=== PATIENT | female | born 1950 | race Caucasian/White ===

== ENCOUNTER 2021-07-25 09:15 | Emergency (ER) | payer OTHER ==
--- OUTSIDE RECORDS SUMMARY | 2021-07-25 09:17 | XMS REPORT | Continuity of Care Document ---
:1950 Author Organization [facility] t Address [address] [place] [address] Dr. Palomino [address] [place] [id number] Care Team Providers Name Role Phone CRISTEL Attending Clinician Unavailable Problems This patient has no known problems. Allergies, Adverse Reactions, Alerts This patient has no known allergies or adverse reactions. Medications This patient has no known medications. Procedures This patient has no known procedures. Encounters Start End Encounter Admission Attending Care Care Encounter Source Date/Time Date/Time Type Type Clinicians Facility Department ID 2020-08-12 2020-08-12 Outpatient CRISTEL [facility] [id number] 00:00:00 00:00:00 JANA [id number] [facility] Results This patient has no known results.
[2021-07-25] MEDS ORDERED: NA CHLORIDE 0.9% 1,000 ML ONE (09:52)
[2021-07-25 09:58] LABS: Absolute Lymphocytes (CBC) 1.5 K/uL (0.7-4.9); Hematocrit 40.5 % (36.0-45.0); Lymphocytes % 24.5 % (15.3-44.8); MPV 6.6 fL (7.6-11.3)
[2021-07-25 10:18] LABS: Ferritin 160.3 ng/mL (8-388); Potassium 4.2 mmol/L (3.5-5.1)
--- NOTE | 2021-07-25 10:32 | RAD REPORT ---
EXAM DESCRIPTION: RAD - Chest Single View - 07/25/2021 10:11 am CLINICAL HISTORY: COVID+, sob;Cough COMPARISON: Chest Pa And Lat (2 Views) dated 07/21/2017; Chest Pa And Lat (2 Views) dated 03/24/2016; C hest Pa And Lat (2 Views) dated 02/23/2016 FINDINGS: Lines: None. Lungs: No evidence of edema or pneumonia. Apical scarring. Pleural: No significant pleural effusions or pneumothorax. Cardiac: The heart size is within normal limits. Bones: No acute fractures. Other: IMPRESSION: No acute cardiopulmonary disease.
--- NOTE | 2021-07-25 12:23 | ER ---
Nurse's Notes [facility] Name: Yulissa Arambula Age: 70 yrs Sex: Female : 1950 Arrival Date: 07/25/2021 Time: 09:20 Bed 5 Private MD: Lauro Mensah C Diagnosis: SARS-associated coronavirus as the cause of diseases classified elsewhere;Muscle weakness (generalized) Presentation: 07/25 09:25 Chief complaint: Patient states: Tested positive for covid last week 07/18/2001; states vg1 'last night I began to not feel well, states h/a and 'feeling weak'. Denies difficulty breathing, pain, or N/V. 09:25 Coronavirus screen: Vaccine status: Patient reports receiving the 2nd dose of the covid vg1 vaccine. Client denies travel out of the [place] in the last 14 days. Client reports previous positive COVID test result. Date of collection: July 18, 2021. Ebola Screen: Patient negative for fever greater than or equal to 101.5 degrees Fahrenheit, and additional compatible Ebola Virus Disease symptoms. Initial Sepsis Screen: Does the patient meet any 2 criteria? No. Patient's initial sepsis screen is negative. Does the patient have a suspected source of infection? No. Patient's initial sepsis screen is negative. Risk Assessment: Do you want to hurt yourself or someone else? Patient reports no desire to harm self or others. Onset of symptoms was July 24, 2021. 09:25 Method Of Arrival: Ambulatory vg1 09:25 Acuity: JENNIFER 3 vg1 Triage Assessment: 09:25 General: Appears in no apparent distress. uncomfortable, Behavior is calm, cooperative. vg1 Pain: Denies pain. EENT: No signs and/or symptoms were reported regarding the EENT system. Neuro: Level of Consciousness is awake, alert, obeys commands, Oriented to person, place, time, situation. Cardiovascular: Patient's skin is warm and dry. Respiratory: Airway is patent Respiratory effort is even, unlabored, Breath sounds are clear bilaterally. GI: Patient currently denies nausea, vomiting. : No signs and/or symptoms were reported regarding the genitourinary system. Derm: Skin is intact, is healthy with good turgor. Musculoskeletal: Circulation, motion, and sensation intact. Historical: - Allergies: 09:25 Medication with 'Mycin'; vg1 - Home Meds: 09:25 Simvastatin Oral [Active]; Ativan Oral [Active]; vg1 - PMHx: 09:25 Anxiety; Hypertensive disorder; Hypercholesterolemia; vg1 - Immunization history:: Client reports receiving the 2nd dose of the Covid vaccine. - Social history:: Smoking status: Patient denies any tobacco usage or history of. - Family history:: not pertinent. - Hospitalizations: : No recent hospitalization is reported. Screenin:07 Abuse screen: Denies threats or abuse. Nutritional screening: No deficits noted. vg1 Tuberculosis screening: No symptoms or risk factors identified. Fall Risk No fall in past 12 months (0 pts). No secondary diagnosis (0 pts). IV access (20 points). Ambulatory Aid- None/Bed Rest/Nurse Assist (0 pts). Gait- Normal/Bed Rest/Wheelchair (0 pts) Mental Status- Oriented to own ability (0 pts). Total Rodriguez Fall Scale indicates No Risk (0-24 pts). Assessment: 09:25 Reassessment: SEE TRIAGE. vg1 10:30 Reassessment: Patient appears in no apparent distress at this time. No changes from vg1 previously documented assessment. Patient and/or family updated on plan of care and expected duration. Pain level reassessed. Patient is alert, oriented x 3, equal unlabored respirations, skin warm/dry/pink. 11:55 Reassessment: Patient appears in no apparent distress at this time. No changes from vg1 previously documented assessment. Patient is alert, oriented x 3, equal unlabored respirations, skin warm/dry/pink. Vital Signs: 09:20 BP 157 / 90; Pulse 64; Resp 18; Pulse Ox 100% ; Pain 0/10; jh6 09:25 BP 157 / 95; Pulse 82; Resp 17; Temp 98.5(O); Pulse Ox 98% on R/A; Weight 49.9 kg; vg1 Height 5 ft. 1 in. (154.94 cm); Pain 0/10; 11:08 BP 158 / 72; Pulse 64; Resp 18; Pulse Ox 100% on R/A; Pain 0/10; jh6 11:54 BP 140 / 81; Pulse 67; Resp 15; Pulse Ox 100% on R/A; vg1 13:07 BP 136 / 81; Pulse 72; Resp 18; Temp 98.2; Pulse Ox 100% ; Pain 0/10; jh6 09:25 Body Mass Index 20.78 (49.90 kg, 154.94 cm) vg1 ED Course: 09:20 Patient arrived in ED. as 09: Lauro Mensah MD is Private Physician. as 09: Ousmane Marquez MD is Attending Physician. rn 09:22 Marsha Cabrera RN is Primary Nurse. vg1 09:25 Arm band placed on. EKG completed in triage. Results shown to MD. vg1 09:50 Initial lab(s) drawn, by me, sent to lab. Inserted saline lock: 22 gauge in left vg1 antecubital area, using aseptic technique. Blood collected. 10:04 Triage completed. vg1 10:07 Patient has correct armband on for positive identification. Placed in gown. Bed in low vg1 position. Call light in reach. Side rails up X 1. Adult w/ patient. patent searcher on. Pulse ox on. NIBP on. 10:07 No provider procedures requiring assistance completed. vg1 10:11 XRAY Chest (1 view) In Process Unspecified. EDMS 12:45 Notified ED physician of a critical lab result(s). COVID +. jl7 13:08 IV discontinued, intact, bleeding controlled, No redness/swelling at site. Pressure jh6 dressing applied. Administered Medications: 09:56 Drug: NS 0.9% 1000 ml Route: IV; Rate: 1000 ml; Site: left antecubital; 6 11:00 Follow up: IV Status: Completed infusion; IV Intake: 1000ml 1 Intake: 11:00 IV: 1000ml; Total: 1000ml. vg1 Outcome: 12:22 Discharge ordered by . rn 13:07 Discharged to home ambulatory. jh6 13:07 Condition: good 13:07 Discharge instructions given to patient, family, Instructed on discharge instructions, follow up and referral plans. Demonstrated understanding of instructions, follow-up care, Prescriptions given X 13:08 Patient left the ED. jh6 Signatures: Dispatcher [employer] EDMS Debra Jacobsen Roman, MD MD rn Leal, Jahala, RN RN jl7 Marsha Cabrera RN RN 1 Shani Villanueva RN RN 6
--- NOTE | 2021-07-25 12:23 | EDPHYS ---
Physician Documentation [facility] Name: Yulissa Arambula Age: 70 yrs Sex: Female : 1950 Arrival Date: 07/25/2021 Time: 09:20 Bed 5 Private MD: Lauro Mensah C ED Physician Ousmane Marquez HPI: 07/25 09:38 This 70 yrs old Female presents to ER via Unassigned with complaints of Weakness, rn Headache, Congestion - covid+. 09:38 Patient reports has been recently had COVID, she initially tested negative but then rn +1-week ago. Reports mild cough/headache/generalized weakness. Reports the weakness is the most severe symptom. Reports mild diarrhea. Reports mild shortness of breath. No chronic respiratory problems. No chest pain. No hemoptysis.. Onset: The symptoms/episode began/occurred 1 week(s) ago. Severity of symptoms: At their worst the symptoms were mild in the emergency department the symptoms are unchanged. The patient has not experienced similar symptoms in the past. The patient has been recently seen by a physician:. Historical: - Allergies: 09:25 Medication with 'Mycin'; vg1 - Home Meds: 09:25 Simvastatin Oral [Active]; Ativan Oral [Active]; vg1 - PMHx: 09:25 Anxiety; Hypertensive disorder; Hypercholesterolemia; vg1 - Immunization history:: Client reports receiving the 2nd dose of the Covid vaccine. - Social history:: Smoking status: Patient denies any tobacco usage or history of. - Family history:: not pertinent. - Hospitalizations: : No recent hospitalization is reported. ROS: 09:38 Constitutional: Negative for fever, and weight loss, Eyes: Negative for injury, pain, rn redness, and discharge, Neck: Negative for injury, pain, and swelling, Cardiovascular: Negative for chest pain, palpitations, and edema, Respiratory: Negative for shortness of breath, cough, wheezing, and pleuritic chest pain, Abdomen/GI: Negative for abdominal pain, nausea, vomiting, and constipation, Back: Negative for injury and pain, : Negative for injury, bleeding, discharge, and swelling, MS/Extremity: Negative for injury and deformity, Skin: Negative for injury, rash, and discoloration, Neuro: Negative for numbness, tingling, and seizure. Exam: 09:38 Constitutional: This is a well developed, well nourished patient who is awake, alert, rn and in no acute distress. Ambulatory to room without assistance or difficulty Head/Face: Normocephalic, atraumatic. Eyes: Periorbital areas with no swelling, redness, or edema. ENT: Nares patent. No nasal discharge, no septal abnormalities noted. Tympanic membranes are normal and external auditory canals are clear. Oropharynx with no redness, swelling, or masses, exudates, or evidence of obstruction, uvula midline. Mucous membranes moist. Cardiovascular: Regular rate and rhythm. No pulse deficits. Respiratory: Speaking full sentences, unlabored. No increased work of breathing, no retractions or nasal flaring. Abdomen/GI: Soft, non-tender Skin: Warm, dry MS/ Extremity: Pulses equal, no cyanosis Neuro: Awake and alert, GCS 15, oriented to person, place, time, and situation. Motor strength 5/5 in all extremities. Sensory grossly intact. Cerebellar exam normal. Normal gait. 10:00 ECG was reviewed by the Attending Physician. rn Vital Signs: 09:20 BP 157 / 90; Pulse 64; Resp 18; Pulse Ox 100% ; Pain 0/10; jh6 09:25 BP 157 / 95; Pulse 82; Resp 17; Temp 98.5(O); Pulse Ox 98% on R/A; Weight 49.9 kg; vg1 Height 5 ft. 1 in. (154.94 cm); Pain 0/10; 11:08 BP 158 / 72; Pulse 64; Resp 18; Pulse Ox 100% on R/A; Pain 0/10; jh6 11:54 BP 140 / 81; Pulse 67; Resp 15; Pulse Ox 100% on R/A; vg1 13:07 BP 136 / 81; Pulse 72; Resp 18; Temp 98.2; Pulse Ox 100% ; Pain 0/10; jh6 09:25 Body Mass Index 20.78 (49.90 kg, 154.94 cm) vg1 MDM: 09:22 Patient medically screened. rn 11:47 ED course: Called Dr. Mensah, no answer. rn 12:20 Differential Diagnosis flu, COVID, dehydration, weakness, electrolyte problem. Data rn reviewed: vital signs, nurses notes, lab test result(s), radiologic studies, plain films, and as a result, I will discharge patient. Counseling: I had a detailed discussion with the patient and/or guardian regarding: the historical points, exam findings, and any diagnostic results supporting the discharge/admit diagnosis, lab results, radiology results, the need for outpatient follow up, to return to the emergency department if symptoms worsen or persist or if there are any questions or concerns that arise at home. Response to treatment: the patient's symptoms have mildly improved after treatment, and as a result, I will discharge patient. Special discussion: I discussed with the patient/guardian in detail that at this point there is no indication for admission to the hospital. It is understood, however, that if the symptoms persist or worsen the patient needs to return immediately for re-evaluation. 07/25 09:34 Order name: CBC with Diff; Complete Time: 10:33 rn 07/25 09:34 Order name: Basic Metabolic Panel; Complete Time: 10:33 rn 07/25 09:34 Order name: XRAY Chest (1 view); Complete Time: 10:33 rn 07/25 09:34 Order name: COVID-19/FLU A+B (Document "Date of Onset" if Symptomatic); Complete Time: rn 12:46 07/25 09:34 Order name: Ferritin; Complete Time: 10:33 rn 07/25 09:34 Order name: Procalcitonin; Complete Time: 11:43 rn 07/25 09:34 Order name: IV Start; Complete Time: 09:58 rn 07/25 09:34 Order name: EKG; Complete Time: 09:34 rn 07/25 09:34 Order name: EKG - Nurse/Tech; Complete Time: :58 rn 07/25 09:34 Order name: Cardiac monitoring; Complete Time: :58 rn 07/25 09:34 Order name: O2 Sat Monitoring; Complete Time: 09:58 rn EC:00 Rate is 65 beats/min. Rhythm is regular. QRS [place] is Normal. [place] interval is normal. QRS rn interval is normal. QT interval is normal. No Q waves. T waves are Normal. No ST changes noted. Clinical impression: Normal ECG. Interpreted by me. Administered Medications: 09:56 Drug: NS 0.9% 1000 ml Route: IV; Rate: 1000 ml; Site: left antecubital; jh6 11:00 Follow up: IV Status: Completed infusion; IV Intake: 1000ml vg1 Disposition Summary: 07/25/21 12:22 Discharge Ordered Location: Home rn Problem: an ongoing problem rn Symptoms: have improved rn Condition: Stable rn Diagnosis - SARS-associated coronavirus as the cause of diseases classified elsewhere rn - Muscle weakness (generalized) rn Followup: rn - With: Private Physician - When: As needed - Reason: Recheck today's complaints, Re-evaluation by your physician Discharge Instructions: - Discharge Summary Sheet rn - Weakness rn - COVID-19 rn - Viral Illness, Adult rn Forms: - Medication Reconciliation Form rn - Thank You Letter rn - Antibiotic rn homecare - Prescription Opioid Use rn Signatures: Dispatcher [employer] Ousmane Eastman MD MD rn Garcia, Victoria RN RN vg1 Shani Villanueva RN RN jh6
[2021-07-25 12:44] LABS: SARS-COV-2 RT PCR POSITIVE (NEGATIVE)
[2021-07-25 13:25] VITALS: O2SAT 100
[2021-07-25 13:28] VITALS: BP 136/81; TEMP 98.2
--- NOTE | 2021-07-26 09:25 | EKG ---
Test Date: 2021-07-25 Test Time: 09:59:16 Press Offbearer: CATHY MEASUREMENT RESULTS: Intervals: Rate: 65 AL: 124 QRSD: 76 QT: 410 QTc: 426 [place]: P: 43 AL: 124 QRS: 41 T: 46 INTERPRETIVE STATEMENTS: Normal sinus rhythm Normal ECG No previous ECG available for comparison Electronically Signed On 07-26-21 09:23:09 [employer] by Ignacio Bean
== END 2021-07-25 13:08 | disposition home or self-care (01) ==
LOC: ER 09:15
DX: U07.1 COVID-19 (principal); I10 Essential (primary) hypertension; F41.9 Anxiety disorder, unspecified
CPT/HCPCS: 93005; 85025; 80048; 36415; 82728; 84145; 0240U; 71045; 96360; 99284; J7030